=== PATIENT | female | born 1975 | race Two or more races ===

== ENCOUNTER 2016-06-15 22:24 | Emergency (ER) | payer SELFPAY ==
[~2016-06-15] VITALS: Ht 160 cm; Wt 95.3 kg
[2016-06-15] MEDS ORDERED: IBUPROFEN600 MG ORAL (23:38)
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
[2016-06-15 23:56] VITALS: BP 129/80
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
== END 2016-06-15 23:57 | disposition home or self-care (01) ==
LOC: EMR 23:28
DX: S40.012A Contusion of left shoulder, initial encounter (principal); V43.52XA Car driver injured in collision with other type car in traffic accident, initial encounter; Y93.9 Activity, unspecified; Y92.410 Unspecified street and highway as the place of occurrence of the external cause
CPT/HCPCS: 99283